=== PATIENT | male | born 1965 | race Caucasian/White ===

== ENCOUNTER 2017-10-07 14:16 | Emergency (ER) | payer OTHER ==
[~2017-10-07] VITALS: Ht 172.7 cm; Wt 86.2 kg
[~2017-10-07 14:16] MED LIST: AZIT250 PO; HYDACE5 PO; SULF10OPSA OS
== END 2017-10-07 15:55 | disposition home or self-care (01) ==
LOC: ER 14:16
DX: F10.239 Alcohol dependence with withdrawal, unspecified (principal)
CPT/HCPCS: 99283

== ENCOUNTER → 2021-11-07 | Outpatient (CLI) | payer OTHER ==
[2021-11-13 13:00] LABS: Stool Occult Bld Immuno 1 Negative (NEGATIVE)
== END | disposition home or self-care (01) ==
LOC: LAB SHORT 12:00 → LAB 12:00
PROVIDERS: Physician Assistant
DX: Z12.11 Encounter for screening for malignant neoplasm of colon (principal)
CPT/HCPCS: G0328

== ENCOUNTER → 2022-11-26 | Outpatient (CLI) | payer BC ==
[2022-12-03 11:15] LABS: Stool Occult Bld Immuno 1 Negative (NEGATIVE)
== END ==
LOC: PLD 12:00 → LAB 12:00 → LAB SHORT 12:00
PROVIDERS: Physician Assistant
DX: Z12.11 Encounter for screening for malignant neoplasm of colon (principal)
CPT/HCPCS: G0328